=== PATIENT | male | born 1960 | race Caucasian/White ===

== ENCOUNTER 2024-06-28 18:23 | Emergency (ER) | payer OTHER, MEDICARE ==
[2024-06-28] MEDS ORDERED: Sodium Chloride 0.9% 10 ML Syringe FLUSH PRN (18:40)
[2024-06-28 18:55] LABS: HEMATOCRIT 44.1 % (40.0-54.0); HEMOGLOBIN 15.1 g/dL (14.0-18.0); MEAN CORPUSCULAR HEMOGLOBIN 32.4 pg (27.0-34.0); MEAN CORPUSCULAR HGB CONC 34.2 g/dL (33.0-35.0); MEAN CORPUSCULAR VOLUME 94.6 fL (80-100); PLATELET COUNT,PLT 313 10^3/uL (150-450); RED BLOOD CELL COUNT 4.66 10^6/uL (4.6-6.2); WHITE BLOOD CELL COUNT,WBC 28.4 10^3/uL (5.0-10.0)
[2024-06-28 18:58] LABS: BASOPHILS PERCENT AUTO 0.1 % (0.0-1.0); EOSINOPHILS PERCENT AUTO 0.4 % (1.0-3.0); LYMPHOCYTES PERCENT AUTO 7.9 % (20.5-50.1); MONOCYTES PERCENT AUTO 6.7 % (2-8); NEUTROPHILS PERCENT AUTO 84.9 % (42.2-75.2)
[2024-06-28 19:11] LABS: APPEARANCE,URINE CLEAR (CLEAR); BILIRUBIN,URINE NEGATIVE (NEGATIVE); COLOR,URINE YELLOW (YELLOW); GLUCOSE,URINE NEGATIVE (NEGATIVE); KETONES,URINE NEGATIVE (NEGATIVE); LEUKOCYTE ESTERASE,URINE NEGATIVE (NEGATIVE); NITRITE,URINE NEGATIVE (NEGATIVE); OCCULT BLOOD,URINE MODERATE (NEGATIVE); PH,URINE 5.5 (5.0-9.0); PROTEIN,URINE 30 (NEGATIVE); UROBILINOGEN,URINE 0.2 mg/dL (0.2-1.0)
[2024-06-28 19:12] LABS: BAND PERCENT MAN 3 %; SEG NEUTROPHILS PERCENT MAN 83 % (42-75)
[2024-06-28 19:13] LABS: LYMPHOCYTES PERCENT MAN 10 % (20-50); MONOCYTES PERCENT MAN 4 % (2-8)
[2024-06-28 19:13] LABS: AMPHETAMINES,URINE NEGATIVE (NEGATIVE); BARBITURATES,URINE NEGATIVE (NEGATIVE); BENZODIAZEPINE,URINE NEGATIVE (NEGATIVE); MDMA (ECSTASY), URINE NEGATIVE (NEGATIVE); METHADONE,URINE NEGATIVE (NEGATIVE); METHAMPHETAMINES,URINE NEGATIVE (NEGATIVE); OPIATES,URINE NEGATIVE (NEGATIVE); OXYCODONE,URINE NEGATIVE (NEGATIVE); PHENCYCLIDINE,URINE NEGATIVE (NEGATIVE); TCA,URINE NEGATIVE (NEGATIVE)
[2024-06-28 19:14] LABS: PROTHROMBIN TIME 10.4 SEC (9.0-12.0); PTT,PARTIAL THROMBOPLSTIN TIME 23.9 SEC (22.0-34.0)
[2024-06-28 19:18] LABS: ALANINE AMINOTRANSFERASE,ALT 71 U/L (16-63); ALBUMIN 3.6 g/dL (3.4-5.0); ALKALINE PHOSPHATASE 40 U/L (46-116); ANION GAP 16.5 mEq/L (7-13); ASPARTATE AMNIOTRANSFERASE,AST 91 U/L (15-37); BILIRUBIN TOTAL 0.6 mg/dL (0.2-1.0); BLOOD UREA NITROGEN,BUN 13 mg/dL (7-18); BUN/CREATININE RATIO 15.3 (No establ ref range); C-REACTIVE PROTEIN 0.62 ng/dL (<=0.50); CALCIUM 8.3 mg/dL (8.5-10.1); CARBON DIOXIDE,CO2 23 mmol/L (21-32); CHLORIDE,CL 102 mmol/L (98-107); CREATININE 0.85 mg/dL (0.70-1.30); ESTIMATED GFR 96 mL/min (>=60); ETHANOL BLOOD MEDICAL 108 mg/dL (0); GLUCOSE RANDOM 118 mg/dL (70-99); LIPASE 56 U/L (16-77); POTASSIUM,K 3.5 mmol/L (3.5-5.1); PROTEIN TOTAL,TP 7.1 g/dL (6.4-8.2); SODIUM,NA 138 mmol/L (136-145)
[2024-06-28 19:24] LABS: BACTERIA,URINE FEW /HPF (0-FEW/HPF); EPITHELIAL CELLS,URINE FEW /HPF (NOT SEEN); HYALINE CASTS,URINE RARE; MUCUS,URINE FEW /LPF (NOT SEEN); WBC,URINE 0-5 /HPF (0-5/HPF)
[2024-06-28 19:37] LABS: LACTIC ACID 3.3 mmol/L (0.4-2.0)
[2024-06-28] MEDS ORDERED: Diphtheria,Pertussis(Acell),Tetanus Vaccine 0.5 ML Syringe IM ONE (20:03)
[2024-06-28] MEDS ORDERED: Ondansetron 4 MG/2 ML SDV IVPUSH ONE (20:06)
[2024-06-28] MEDS ORDERED: fentaNYL 100 MCG/2 ML SDV IVPUSH ONE (20:06)
[2024-06-28] MEDS ORDERED: fentaNYL 100 MCG/2 ML SDV IV ONE (20:12)
[2024-06-28] MEDS ORDERED: Ondansetron 4 MG/2 ML SDV IV ONE (20:13)
[2024-06-28] MEDS ORDERED: Sodium Chloride 0.9% 10 ML Syringe IV ONE (20:36)
[2024-06-28] MEDS: Iopamidol 612 MG/ML 100 ML Bottle IVPUSH ONE (21:53)
== END 2024-06-28 21:07 ==
LOC: DL.ED 18:23
DX: S06.5XAA Traumatic subdural hemorrhage with loss of consciousness status unknown, initial encounter (principal); S06.A1XA Traumatic brain compression with herniation, initial encounter; S22.41XA Multiple fractures of ribs, right side, initial encounter for closed fracture; Q24.8 Other specified congenital malformations of heart; V87.7XXA Person injured in collision between other specified motor vehicles (traffic), initial encounter
CPT/HCPCS: 29515; 36415; 51702; 70450; 71045; 71260; 72125; 72170; 73590-LT; 74177; 80053; 80305-QW; 80307; 81001; 82140; 82947; 83605; 83690; 84484; 85025; 85610; 85730; 86140; 86850; 86900; 86901; 90471; 90715; 93005; 93010; 96374; 96375; 99285; 99285-25; J2405; J3010; J3490; Q9967